=== PATIENT | female | born 1995 | race Caucasian/White ===

== ENCOUNTER → 2023-03-29 | Outpatient (CLI) | payer OTHER, SELFPAY ==
[2023-04-05 17:53] LABS: HPV Reflexed? NOT INDICATED
== END | disposition home or self-care (01) ==
LOC: LABSPEC 17:11
PROVIDERS: Referring Provider Advanced Practice Midwife; Visit Provider Advanced Practice Midwife
DX: Z12.4 Encounter for screening for malignant neoplasm of cervix (principal)
CPT/HCPCS: 88175; G0145

== ENCOUNTER → 2024-04-14 | Outpatient (CLI) | payer OTHER, SELFPAY ==
--- NOTE | 2024-04-14 08:48 | US_ITS ---
STUDY: ULTRASOUND BREAST - LEFT REASON FOR EXAM: Female, 28 years old. Pain in the left breast. TECHNIQUE: Axial and longitudinal images of the LEFT breast were performed with a high resolution ultrasound transducer. # OF IMAGES: 21 COMPARISON: Comparison is made with prior mammogram done earlier today. FINDINGS: LEFT Breast: The inferior lateral quadrant of the left breast was examined with ultrasound. No sonographic abnormality is seen. US/Breast Limited Unilateral IMPRESSION: No sonographic abnormality is seen. ASSESSMENT CATEGORY: BIRADS Category 1: Negative. A letter regarding these results will be sent to the patient by the facility within 30 days. Electronically Signed: Fox Escalante MD at 13:54 EST ,
--- NOTE | 2024-04-14 08:48 | BI_ITS ---
MAMMOGRAPHY - BILATERAL DIAGNOSTIC REASON FOR EXAM: Female, 28 years old. Left lateral breast PERTINENT HISTORY: Grandmother with breast cancer. Aunts with breast cancer. TECHNIQUE: Digital bilateral breast james (3D mammographic acquisition) in the CC and MLO projections. 2-D mediolateral oblique (MLO) and craniocaudad (CC) views of both breasts were obtained. CAD: Full Field Digital Mammography with Computer Added Detection was performed. COMPARISON: None. Baseline examination. FINDINGS: Breast Composition: The breasts are extremely dense, which lowers the sensitivity of mammography. There are no dominant masses or suspicious calcifications. No other significant abnormalities are identified. BI/DIAG MAMM W/CAD, BILAT IMPRESSION: Negative diagnostic mammogram. With the patient''s history of a palpable lump in the left breast, targeted ultrasound correlation recommended. ASSESSMENT CATEGORY: BIRADS Category 0: Incomplete. Need additional imaging evaluation. A letter regarding these results will be sent to the patient by the facility within 30 days. Approximately 10% of breast cancers are not detected by mammography. A normal mammogram should not delay biopsy of a clinically suspicious abnormality. Electronically Signed: Fox Escalante MD at 10:28 EST ,
== END | disposition home or self-care (01) ==
PROVIDERS: Referring Provider Advanced Practice Midwife; Visit Provider Advanced Practice Midwife
DX: N63.20 Unspecified lump in the left breast, unspecified quadrant (principal); Z80.3 Family history of malignant neoplasm of breast
CPT/HCPCS: 76642; 77062; 77066; G0279

== ENCOUNTER → 2024-11-20 | Outpatient (CLI) | payer OTHER, SELFPAY ==
--- NOTE | 2024-11-20 17:48 | US_ITS ---
PROCEDURE: TRANSVAGINAL NON- 11/20/2024 REASON FOR EXAM: IRREGULAR CYCLES TECHNIQUE: Grayscale and color Doppler transvaginal ultrasound COMPARISON: None. FINDINGS: Measurements: Uterus: 7.5 x 3.4 x 4.9 cm for volume of 65.5 mL Endometrial Thickness: 0.5 cm Right Ovary: 4.3 x 2.3 x 2.7 cm for volume of 14.0 mL Left Ovary: 3.0 x 1.8 x 1.9 cm for volume of 5.4 mL Uterus: Retroverted. Normal contour and myometrial echotexture. Nabothian cysts at the cervix. Endometrium: Normal echotexture. Right ovary: There are multiple small physiologic follicles, at least 10 on a single image. Left ovary: Normal size and echotexture. Cul-de-sac: No free intraperitoneal fluid identified. Color Doppler: Normal color flow doppler signal at both ovaries. US/Transvaginal Non- IMPRESSION: Polycystic morphology of the right ovary. Correlate for clinical evidence of P COS. Reading Location: [facility]
== END | disposition home or self-care (01) ==
PROVIDERS: Referring Provider Advanced Practice Midwife; Visit Provider Advanced Practice Midwife
DX: N92.6 Irregular menstruation, unspecified (principal)
CPT/HCPCS: 76830

== ENCOUNTER → 2024-11-28 | Outpatient (CLI) | payer OTHER, SELFPAY ==
--- OUTSIDE RECORDS SUMMARY | 2024-11-28 10:24 | XMS RPT_ITS | CCD ---
Author Organization [facility] Care Team Providers Care Singing Messenger Name Role Phone No, Physician Primary Care Provider UnavailJACEY Cartagena Attending Unav ailable JACEY HER Referring Unav ailable NO, PHYSICIAN Primary Care Unavailable JACEY HER Admitting Unav ailable Rodriguez, Renee Unavailable Unavailable Adriane Demarco B Unavailable Unavailable Adriane Demarco B Unavailable Unavailable Unavailable Unavailable Primary Care Provider Unavailabl e Unavailable Primary Care Provider Unavaillaurence e LILLY BOYD II Attending Unavailabl e LILLY BOYD II Referring Unavailabl e BEKA ZEPEDA Attending Unavailable EUFEMIA, ADRIANE B Primary Care Unavailable EUFEMIA, ADRIANE B Primary Care Unavailable Care Physician, No Primary Primary Care Provider Unavailable Care Physician, No Primary Referring Provider Un available Britney Garcia CNM Attending Provider [phone] Care Physician, No Primary Referring Unava ilable Britney Garcia Attending Unavailable Care Physician, No Primary Primary Care Unava ilable Britney Garcia Attending Unavailable Britney Garcia Referring Unavailable Care Physician, No Primary Primary Care Unava ilable Britney Garcia Attending Unavailable Britney Garcia Referring Unavailable Care Physician, No Primary Primary Care Unava ilable Care Physician, No Primary Primary Care Unava ilable Care Physician, No Primary Referring Unava ilable Britney Garcia Attending Unavailable Britney Garcia CNM Referring Provider Allergies Allergy Classification Reported Allergen(s) Allergy Type Date of Onset Reaction(s) Facility Penicillins (antibiotic) (1 source) Amoxicillin; Translations: [AMOXICILLIN] Drug Allergy 2 [facility] 3 Repository Unclassified (2 sources) DOG DANDER; Translations: [DOG DANDER] Propensity to adverse reactions to drug (disorder) 4 [facility] 3 Repository (8 sources) Animal dander - Cats allergy to substance Itching [facility] Work Phone: (8 sources) Animal dander - Dogs allergy to substance Itching [facility] Work Phone: (4 sources) Grass allergy to substance Itching [facility] Work Phone: (5 sources) Amoxicillin; Translations: [Amoxicillin TABS] [facility] (3 sources) Amoxicillin; Translations: [AMOXICILLIN] Drug Allergy 2 [facility] Repository Medications Current Medications Medication Drug Class(es) Dates Sig (Normalized) Sig (Original) benoxinate hydrochloride 4 mg/ml / fluorescein sodium 2.5 mg/ml ophthalmic solution (2 sources) Diagnostic Dye Start: 04-04-2022 End: 04-05-2022 fluorescein-benoxi eliceo 0.25-0.4 % 1 Drop (FLURESS) Start: 02-28-2022 End: 03-01-2022 fluorescein-benoxinate 0.25- 0.4 % 1 Drop (FLURESS) phenylephrine hydrochloride 25 mg/ml ophthalmic solution (1 source) alpha-1 Adrenergic Agonist Start: 02-28-2022 End: 03-01-2022 PHENYLephrine 2.5 % 1 Drop (AK-DILATE, DRE-SYNEPHRINE) Completed/Discontinued Medications Medication Drug Class(es) Dates Sig (Normalized) Sig (Original) amoxicillin 500 mg oral tablet (1 source) Penicillin-class Antibacterial Start: 07-25-2021 take 2 tablets by mouth every eight hours Amoxicillin 500 MG Oral Tablet TAKE 2 TABLET Every 8 hours Quantity: 42 Refills: 0 Ordered: 25-Jul-2021 Evelyn ENGINE BUILDUP MECH[employer]IC-STUDENT TRUCK DRIVER, Bree Start : 25-Jul-2021 Active azithromycin 250 mg oral tablet (4 sources) Macrolide Antimicrobial Start: 07-27-2021 Azithromycin 250 MG Oral Tablet TAKE 2 TABLETS ON DAY 1 THEN TAKE 1 TABLET A DAY FOR 4 DAYS. Quantity: 1 Refills: 0 Ordered: 27-Jul-2021 Cbick ENGINE BUILDUP MECHANIC-STUDENT TRUCK DRIVER, Bree Start : 27-Jul-2021 Active Start: 05-22-2019 End: 07-25-2021 take 10 tablets by mouth once Azithromycin 250 MG Oral Tablet TAKE DIRECTED PER PACKAGE INSTRUCTIONS. Quantity: 1 Refills: 0 Ordered: 22-May-2019 Renee Fermin Start : 22-May-2019 End : 25-Jul-2021 Complete Start: 05-22-2019 take 1 tablet by mouth once Az ithromycin 250 MG Oral Tablet TAKE DIRECTED PER PACKAGE INSTRUCTIONS. Quantity: 1 Refills: 0 Renee Fermin Start : 22-May-2019 Active 6 Tablet Pack cetirizine hydrochloride 5 mg oral tablet (2 sources) Histamine-1 Receptor Antagonist take 2 tablets by mouth once daily cetirizine (ZYRTEC) 5 mg tablet Take 10 mg by mouth once daily. 0 Active Comment on above: Take 10 mg by mouth once daily. fluticasone propionate 0.05 mg/actuat metered dose nasal spray (2 sources) Corticosteroid Start: 2019 End: 2021 take 2 spray(s) nasal route once daily Fluticasone Propionate 50 MCG/ACT Nasal Suspension USE 2 SPRAYS IN EACH NOSTRIL ONCE DAILY Quantity: 1 Refills: 0 Ordered: 23-Jun-2019 Renee Fermin Start : 29-May-2019 End : 25-Jul-2021 Complete 1 ml ketorolac tromethamine 30 mg/ml injection (1 source) Nonsteroidal Anti-inflammatory Drug, Cyclooxygenase Inhibitor Start: 2018 End: 2018 ketorolac (TORADOL) injection 30 mg methylPREDNISolone 4 mg oral tablet (3 sources) Corticosteroid Start: 2019 methylPREDNISolone 4 MG Oral Tablet Therapy Pack as directed Quantity: 1 Refills: 0 Renee Fermin Start : 29-May-2019 Active 21 Tablet Pack methylPREDNISolone 4 MG Oral Tablet Therapy Pack (2 sources) Start: 2019 End: 2021 methylPREDNISolone 4 MG Oral Tablet Therapy Pack as directed Quantity: 1 Refills: 0 Ordered: 29-May-2019 Renee Fermin Start : 29-May-2019 End : 25-Jul-2021 Complete Start: 05-22-2019 End: 07-25-2021 methylPREDNISolone 4 MG Oral Tablet Therapy Pack as directed Quantity: 1 Refills: 0 Ordered: 22-May-2019 Renee Fermin Start : 22-May-2019 End : 25-Jul-2021 Complete montelukast 10 mg oral tablet (2 sources) Leukotriene Receptor Antagonist Start: 05-29-2019 End: 07-25-2021 take 1 tablet by mouth at bedtime Montelukast Sodium 10 MG Oral Tablet TAKE 1 TABLET AT BEDTIME. Quantity: 90 Refills: 1 Ordered: 19-Aug-2019 Adriane Demarco PA-C Start : 29-May-2019 End : 25-Jul-2021 Complete 2 ml ondansetron 2 mg/ml injection (1 source) Serotonin-3 Receptor Antagonist Start: 08-31-2018 End: 09-01-2018 ondansetron (ZOFRAN) injection 4 mg 1000 ml sodium chloride 9 mg/ml injection (1 source) Start: 08-31-2018 End: 09-01-2018 sodium chloride 0.9% (NS) bolus 1,000 mL Problems Active Problems Problem Classification Problem Date Documented Da te Episodic/Chronic Allergic reactions (5 sources) Allergic disposition; Translations: [Allergic reaction] Onset: 12-11-2023 Episodic Blindness and vision defects (4 sources) Bilateral myopia of eyes; Translations: [Myopia, bilateral] Episodic Glaucoma (2 sources) Preglaucoma, unspecified, bilateral; Translations: [Preglaucoma, unspecified] Chronic Headache; including migraine (4 sources) Episodic tension-type headache; Translations: [Episodic tension type headache] Chronic Menstrual disorders (14 sources) Irregular periods; Translations: [Irregular menstrual cycle] Onset: 12-11-2023 Chronic Nonmalignant breast conditions (6 sources) Breast lump; Translations: [Unspecified lump in the left breast, unspecified quadrant] Onset: 04-02-2024 04-08-2024 Episodic Other inflammatory condition of skin (2 sources) Pruritus, unspecified; Translations: [Pruritus, unspecified] Onset: 12-11-2023 Episodic Other screening for suspected conditions (not mental disorders or infectious disease) (7 sources) Patient encounter status; Translations: [Encounter for screening for diabetes mellitus] Onset: 11-18-2024 11-18-2024 Episodic Comment on above: Day 08/05 (due to cyc le length) labs, TVUS, Will consider HSG, SA, Letrozole Other upper respiratory disease (2 sources) Allergic disposition; Translations: [Allergic rhinitis due to other allergen] Chronic Other upper respiratory infections (4 sources) Acute frontal sinusitis; Translations: [Acute maxillary sinusitis] Episodic Viral infection (3 sources) Viral disease; Translations: [Viral infection, unspecified] Onset: 09-01-2018 Episodic Past or Other Problems Problem Classification Problem Date Documented Da te Episodic/Chronic Unclassified (2 sources) Remove/insert IUD 03-29-2023 NEGATED: Highlighted row has been ruled out!Unclassified (2 sources) No known active problems 02-28-2022 Results Test Name Value Interpretation Reference Range Facil ity Transvaginal Non-on 11-20-2024 Transvaginal Non- [facility] Imaging Services [address], [place] [id number] Transvaginal Non- MR#: [id number] Acct: [id number] Name: CASE,MARILYN PITT Rep #: [id number] : 1995 F 29 From: Tiburcio Jameson MD PCP: Care Physician,No Primary Status: REG CLI Study: Transvaginal Non- Date of Exam: Exam# [id number] Ordering Dr: Britney Garcia CNM PROCEDURE: TRANSVAGINAL NON- 11/20/2024 REASON FOR EXAM: IRREGULAR CYCLES TECHNIQUE: Grayscale and color Doppler transvaginal ultrasound COMPARISON: None. FINDINGS: Measurements: Uterus: 7.5 x 3.4 x 4.9 cm for volume of 65.5 mL Endometrial Thickness: 0.5 cm Right Ovary: 4.3 x 2.3 x 2.7 cm for volume of 14.0 mL Left Ovary: 3.0 x 1.8 x 1.9 cm for volume of 5.4 mL Uterus: Retroverted. Normal contour and myometrial echotexture. Nabothian cysts at the cervix. Endometrium: Normal echotexture. Right ovary: There are multiple small physiologic follicles, at least 10 on a single image. Left ovary: Normal size and echotexture. Cul-de-sac: No free intraperitoneal fluid identified. Color Doppler: Normal color flow doppler signal at both ovaries. US/Transvaginal Non- IMPRESSION: Polycystic morphology of the right ovary. Correlate for clinical evidence of PCOS. Reading Location: [facility] CC: BOLA Garcia; No Primary Care Physician Imaging Specialist: Signed Normal [facility] Air Compressor Operator Office Visit Reporton 11-18-2024 Air Compressor Operator Office Visit Report [facility] [address], [address] [place] [address] OFFICE VISIT Date of Service: 11/18/24 MR#: [id number] Acct: [id number] Name: CASE,MARILYN PITT Rep #: [id number] : 1995 Provider: BOLA Mccollum ams Age/Sex: 29/F [facility] [facility] Status: Signed Intake Vital Signs 04/02/24 16:11 11/18/24 06:27 11/18/24 06:31 Height 6 ft 6 ft 6 ft Weight: 193 lb BMI 26.2 BP 108/75 Intake Visit Reasons: Discuss infertility Mri Tech Required: No Is patient in pain?: No Allergies amoxicillin Allergy (Mild, Verified 11/18/24 06:28) Hives Medications ???Medication ???Instructions ???Recorded ???Confirmed ???Type NK 04/02/24 11/18/24 History Is last menstrual period known: Yes Last Menstrual Period: 11/03/24 Post menopausal: No Patient : No : No Do you think of yourself as: straight/heterosexual Current gender identity: female Control Method: none PFSH Family History Sister H/O splenectomy Social History (Updated 11/18/24 @ 06:30 by Iliana Peralta) adopted: No household members: spouse number of children: 0 service: No current occupational status: employed current occupation: [employer] current occupational exposures/hazards: No pets and animals: Yes pets and animals: cat(s) and dog(s) history of recent travel: No sexually active: Yes do you think of yourself as: straight/heterosexual current gender identity: female Smoking Status: Never smoker second hand exposure: No alcohol intake: never substance use type: does not use well-balanced diet: daily or most days caffeine: Yes Type: carbonated beverages Number of servings: 1 eating out: 1-3 times/week during the past year weight has: remained stable flory/orthodoxy: Zoroastrianism seatbelt use: always do you feel safe at home: Yes additional social history: Danny HPI Discuss infertility Details: MARILYN CASE is a 29 year old who presents for irregular menstrual cycles. Has been having unprotected and timed intercourse x 12 months. Using Inositol since last annual in March. Does have regular 33-40 day cycles and believes she is having ovulation sx. Does not use ovulation test strips. 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 any additional risk factors identified: family hx of PCOS Female Reproductive History Last Menstrual Period: 11/03/24 Cycle Length: 21-35 Bleeding Duration: 7 Questions: metorrhagia: No, sexually active: Yes, dyspareunia: No and PCB: No ROS Const Constitutional: Reports system reviewed and no additional complaints, except as documented Cardio Card: Reports system reviewed and no additional complaints, except as documented Resp Resp: Reports system reviewed and no additional complaints, except as documented GI GI: Reports system reviewed and no additional complaints, except as documented : Reports system reviewed and no additional complaints, except as documented Skin Skin/Breast: Reports system reviewed and no additional complaints, except as documented Neuro Neuro: Reports system reviewed and no additional complaints, except as documented Psych Psych: Reports system reviewed and no additional complaints, except as documented Exam Const General: cooperative, healthy appearing, comfortable and no acute distress Orientation: alert, awake and oriented x3 Neck Neck: normal visual inspection and full ROM Resp Effort Inspection: normal respiratory effort, able to speak in complete sentences and symmetric chest movement Skin General: no rashes or lesions noted Neuro General: patient alert, patient awake and patient oriented x3 Cognition: normal cognition Speech: speech normal Gait: normal gait Extrem General: normal to inspection and full ROM Psych Appearance: grossly normal and well kempt Mental Status: mental status grossly normal Affect: normal affect Speech and Movement: speech and movement normal Attitude: cooperative Thought Process: normal Thought Content: normal Judgment: judgment good Coding Level of Care Code Off vis,est,level 4 Diagnoses Irregular menstrual cycle N92.6 Infertility counseling Z31.[address] (more content not included)... Normal [facility] Breast Limited Unilateralon 04-14-2024 Breast Limited Unilateral [facility] Imaging Services [address] [place], [place] [address] Breast Limited Unilateral MR#: [id number] Acct: [id number] Name: CASE,MARILYN PITT Rep #: [id number] : 1995 F 28 From: Fox bueno MD PCP: Care Physician,No Primary Status: REG CLI Study: Breast Limited Unilateral Date of Exam: Exam# [id number] Ordering Dr: Britney Garcia [facility] [id number] STUDY: ULTRASOUND BREAST - LEFT REASON FOR EXAM: Female, 28 years old. Pain in the left breast. TECHNIQUE: Axial and longitudinal images of the LEFT breast were performed with a high resolution ultrasound transducer. # OF IMAGES: 21 COMPARISON: Comparison is made with prior mammogram done earlier today. FINDINGS: LEFT Breast: The inferior lateral quadrant of the left breast was examined with ultrasound. No sonographic abnormality is seen. US/Breast Limited Unilateral IMPRESSION: No sonographic abnormality is seen. ASSESSMENT CATEGORY: BIRADS Category 1: Negative. A letter regarding these results will be sent to the patient by the facility within 30 days. Electronically Signed: Fox Escalante MD at 13:54 EST , CC: BOLA Garcia; No Primary Care Physician Imaging Specialist: Signed Normal [facility] DIAG MAMM W/CAD, BILATon DIAG MAMM W/CAD, BILAT [facility] Imaging Services [address] [place] [address] DIAG MAMM W/CAD, BILAT MR#: [id number] Acct: [id number] Name: CASE,MARILYN PITT Rep #: [id number] : 1995 F 28 From: Fox bueno MD PCP: Care Physician,No Primary Status: REG CLI Study: DIAG MAMM W/CAD, BILAT Date of Exam: 04/14/24 Exam# [id number] Ordering Dr: Britney Garcia CNM [id number] MAMMOGRAPHY - BILATERAL DIAGNOSTIC REASON FOR EXAM: Female, 28 years old. Left lateral breast PERTINENT HISTORY: Grandmother with breast cancer. Aunts with breast cancer. TECHNIQUE: Digital bilateral breast james (3D mammographic acquisition) in the CC and MLO projections. 2-D mediolateral oblique (MLO) and craniocaudad (CC) views of both breasts were obtained. CAD: Full Field Digital Mammography with Computer Added Detection was performed. COMPARISON: None. Baseline examination. FINDINGS: Breast Composition: The breasts are extremely dense, which lowers the sensitivity of mammography. There are no dominant masses or suspicious calcifications. No other significant abnormalities are identified. BI/DIAG MAMM W/CAD, BILAT IMPRESSION: Negative diagnostic mammogram. With the patient''s history of a palpable lump in the left breast, targeted ultrasound correlation recommended. ASSESSMENT CATEGORY: BIRADS Category 0: Incomplete. Need additional imaging evaluation. A letter regarding these results will be sent to the patient by the facility within 30 days. Approximately 10% of breast cancers are not detected by mammography. A normal mammogram should not delay biopsy of a clinically suspicious abnormality. Electronically Signed: Fox Escalante MD at 10:28 EST , CC: BOLA Garcia; No Primary Care Physician Imaging Specialist: Signed Normal [facility] Air Compressor Operator Office Visit Reporton 04-02-2024 Air Compressor Operator Office Visit Report [facility]'s [address], [address] [place] [address] OFFICE VISIT Date of Service: 04/02/24 MR#: [id number] Acct: [id number] Name: CASE,MARILYN PITT Rep #: [id number] : 1995 Provider: BOLA Mccollum ams Age/Sex: 28/F Location: [facility] [place] Status: Signed Intake Vital Signs 03/29/23 16:16 04/02/24 16:07 04/02/24 16:11 Height 6 ft 6 ft 6 ft Weight: 194 lb BMI 26.3 BP 111/77 Intake Visit 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) Mri Tech Required: No Is patient in pain?: No Allergies amoxicillin Allergy (Mild, Verified 04/02/24 16:08) Hives Medications ???Medication ???Instructions ???Recorded ???Confirmed ???Type NK 04/02/24 04/02/24 History Is last menstrual period known: No Post menopausal: No Patient : No : No PFSH Family History (Updated 04/02/24 @ 16:11 by Fauzia Meza) Sister H/O splenectomy Social History (Updated 04/02/24 @ 16:10 by Fauzia Meza) household members: spouse number of children: 0 current occupational status: employed current occupation: [employer] current occupational exposures/hazards: No sexually active: Yes seatbelt use: always do you feel safe at home: Yes additional social history: Danny LATHA Encounter for routine gynecological examination Details: MARILYN VILLASEÑOR is a 28 year old who presents for annual exam. Has been TTC since November. Cycles are every 35-40 days. timed intercourse reviewed and Rick +D-CHiro discussed. Last PAP: 2022 History of abnormal PAP: Last mammogram: due at 42 History of abnormal mammogram: Colon cancer screening: due at 47 Other preventative health care screenings: ROS Const Constitutional: Reports system reviewed and no additional complaints, except as documented Cardio Card: Reports system reviewed and no additional complaints, except as documented Resp Resp: Reports system reviewed and no additional complaints, except as documented GI GI: Reports system reviewed and no additional complaints, except as documented : Reports system reviewed and no additional complaints, except as documented; Denies difficulty voiding, dysuria or urinary frequency Skin Skin/Breast: Reports system reviewed and no additional complaints, except as documented Neuro Neuro: Reports system reviewed and no additional complaints, except as documented Psych Psych: Reports system reviewed and no additional complaints, except as documented; Denies anhedonia, anxiety or depression Exam Const General: cooperative, healthy appearing, comfortable and no acute distress Orientation: alert, awake and oriented x3 Neck Neck: normal visual inspection and full ROM Thyroid: thyroid normal Chest Breast inspection: normal inspection of the breasts and normal inspection of the axillae Breast palpation: normal palpation of the axillae and abnormal palpation of the breast left lower outer mass fixed and firm; nontender and normal areola; no nipple discharge and no tenderness Resp Effort Inspection: normal respiratory effort, able to speak in complete sentences and symmetric chest movement GI Inspection: normal to inspection Palpation: soft Rectal Exam: visual inspection normal External Female Exam: normal external appearance and normal appearance of the urethra Urethra: normal appearance of the urethra Speculum Exam - Vagina: normal appearance of the vagina and normal vaginal discharge Speculum Exam - Cervix: normal appearance of the cervix and nontender Bimanual Exam- Vagina Uterus: normal bimanual exam, normal palpation, uterine size normal, No tender and non-tender Bimanual Exam- Adnexa, other: normal Pelvic Support: normal Skin General: no rashes or lesions noted Neuro General: patient alert, patient awake and patient oriented x3 Cognition: normal cognition Speech: speech normal Gait: normal gait Extrem General: normal to inspection and full ROM Psych Appearance: grossly normal and well kempt Mental Status: mental status grossly normal Affect: normal affect Speech and Movement: speech and movement normal Attitude: cooperative Thought Process: normal Thought Content: normal Judgment: judgment good Coding Level of Care Code Off vis,est,prev 18-39yrs Diagnoses Encounter for routine gynecological examination Z01.419 Breast lump N63.0 Assessment and Plan Assessment and Plan (1) Encounter for routine gynecological examination: (2) Breast lump: Status: Acute Plan: diagnostic mammogram and US Orders: Orders DIAG MAMM W/CAD, UNILAT Today N63.0 - Unspecified lump in unspecified breast Plan Details Additional Comments: Cervical cancer screenin Breast cancer screening: see problem list STD prevention and contraceptive options including their risks, benefi (more content not included)... Normal [facility] Choriogonadotropin.beta subu niton 12-11-2023 HCG.beta subunit Qn m[IU]/mL Normal <5 [facility] Comment on above: Order Comment: Total HCG measurement is performed using the [place] Access Immunoassay which detects intact HCG and free beta HCG subunit. This test is not indicated for use as a tumor marker. HCG testing is performed using a different test methodology at [facility] than other [facility]. Direct result comparison should only be made within the same method. Performed By: #### 2 [id number] #### VILLARREAL DMITRY ([id number]) [facility] ([facility]) [address] [place] [address] Office Visit (Internal Medic ine)on 07-27-2021 Follow-up visit Diagnoses/Problems Assessed Acute non-recurrent maxillary sinusitis (461.0) (J01.00) Allergic reaction, initial encounter (995.3) (T78.40XA) Orders Acute non-recurrent maxillary sinusitis Start: Azithromycin 250 MG Oral Tablet; TAKE 2 TABLETS ON DAY 1 THEN TAKE 1 TABLET A DAY FOR 4 DAYS Rx By: Bree Rivas; Dispense: 0 Days ; #:1 X 6 Tablet Pack; Refill: 0; For: Acute non-recurrent maxillary sinusitis; FEDE = N; Verified Transmission to [id number]; Last Updated By: Piter Díaz; 07/27/2021 8:59:20 AM Acute non-recurrent maxillary sinusitis, Allergic reaction, initial encounter Follow-up PRN Outpatient Follow-up Status: Active Requested for: 27Jul2021 Ordered Stat; For: Acute non-recurrent maxillary sinusitis, Allergic reaction, initial encounter; Ordered By: Bree Rivas Performed: Due: 25Oct2021 Patient Discussion/Summary FUOV PRN ED if respiratory concerns. Provider Impressions Allergic reaction to Amoxicillin. Patient reports hives 2 days after starting Amoxicillin. She reports some improvement with sinusitis and would like a different ATB. Denies respiratory distress or swallowing difficulties. Instructed to D/C Amoxicillin. Start Z-pack. Discussed possible AE. 1 ED if respiratory or swallowing concerns occur. Pt. VU. Benadryl per package instructions for itching. FUOV as needed. Amoxicillin added to allergies. 1 Amended By: Bree Rivas; Jul 27 2021 10:32 AM ESTChief Complaint PT STARTED ANTIBIOTIC A FEW DAYS AGO AND WOKE UP THIS MORNING WITH RASH ON ARMS AND LEGS VERY ITCHY NO DIFFICULTY SWALLOWING History of Present [id number] YOF presents via VV d/t hives after taking Amoxicillin. Denies respiratory concerns. Denies trouble swallowing. Reports itchy rash on b/l UE, torso, and neck. Review of Systems Constitutional: feeling poorly, but no fever. Eyes: no blurred vision. Cardiovascular: no chest pain, no tightness or heavy pressure, no shortness of breath, the heart rate was not slow and the heart rate was not fast. Respiratory: no cough and no shortness of breath during exertion. Gastrointestinal: no diarrhea, no nausea and no vomiting. Skin: a rash and itching, but as noted in HPI. Neurological: no headaches and no dizziness. Psychiatric: no confusion. Active Problems Problems Acute non-recurrent maxillary sinusitis (461.0) (J01.00) Environmental and seasonal allergies (477.8) (J30.89) Irregular menses (626.4) (N92.6) Past Medical History Problems History of Episodic tension-type headache (339.11) (G44.219) Surgical History Problems History of [place] tooth extraction Family History Mother Family history of hypercholesterolemia (V18.19) (Z83.42) Father Family history of cardiac disorder (V17.49) (Z82.49) Family history of hypertension (V17.49) (Z82.49) Family history of malignant neoplasm (V16.9) (Z80.9) Grandparent Family history of cardiac disorder (V17.49) (Z82.49) Family history of myocardial infarction (V17.3) (Z82.49) Maternal Grandmother Family history of malignant neoplasm of female breast (V16.3) (Z80.3) Aunt Family history of hypertension (V17.49) (Z82.49) Maternal Aunt Family history of malignant neoplasm of female breast (V16.3) (Z80.3) Social History Problems No advance directives (V49.89) (Z78.9) No alcohol use No illicit drug use Non-smoker (V49.89) (Z78.9) Allergies Medication Amoxicillin TABS Allergy; Hives;; 27 Jul 2021; Recorded By: Bree Rivas; 07/27/2021 8:57:08 AM NonMedication Animal dander - Cats Allergy; Itching; Updated By: Jessy Quintero; 05/22/2019 1:03:16 PM Animal dander - Cats Itching; Recorded By: Dai Diaz; 05/22/2019 1:05:20 PM Animal dander - Dogs Allergy; Itching; Updated By: Jessy Quintero; 05/22/2019 1:03:16 PM Animal dander - Dogs Itching; Recorded By: Dai Diaz; 05/22/2019 1:05:20 PM Grass Allergy; Itching; Updated By: Jessy Quintero; 05/22/2019 1:03:16 PM Current Meds Medication NameInstruction Amoxicillin 500 MG Oral TabletTAKE 2 TABLET Every 8 hours Vitals Vital Signs Recorded: 27Jul2021 08:36AM Tobacco Useb) No Fall Screeninga) No falls within the last year Physical Exam Constitutional General appearance: Alert and in no acute distress. Pulmonary Respiratory assessment: No respiratory distress, normal respiratory rhythm and effort. Psychiatric Orientation: Oriented to person, place, and time. Mood and affect: Normal. Signatures Electronically signed by : GERALDO Potts; Jul 27 2021 10:32AM EST (Author) Normal [employer]works Tobacco Screening.on 022 Fall risk assessment a) No falls within the last year [facility] Work Phone: Tobacco use status [facility] b) No [facility] Work Phone: Office Visit (Internal Medic ine)on 07-25-2021 Follow-up visit Diagnoses/Problems Assessed Acute non-recurrent maxillary sinusitis (461.0) (J01.00) Acute A/ Onset 6 days ago Sinus pressure and tenderness with palpation of maxillary sinuses b/l. No fever P/ Amoxicillin X 7 days NS nasal spray 3-4 times/day Flonase 1-2 sprays each nostril daily X 7 days. Encouraged continued use of NS nasal spray d/t chronic allergies. Discussed viral vs bacterial infection. FUOV PRN ED if CP or SOB Notify if condition worsens/concerens. Pt. VU. Environmental and seasonal allergies (097.8) (J30.89) Chronic-exacerbated Discussed routine use of NS nasal spray. Claritin daily Orders Acute non-recurrent maxillary sinusitis Start: Amoxicillin 500 MG Oral Tablet; TAKE 2 TABLET Every 8 hours Rx By: Bree Rivas; Dispense: 7 Days ; #:42 Tablet; Refill: 0;For: Acute non-recurrent maxillary sinusitis; FEDE = N; Sent To: [id number] Patient Discussion/Summary FUOV PRN Prescription to listed pharmacy. Chief Complaint C/O SINUS PRESSURE/CONGESTION, RUNNY NOSE, SORE THROAT SINCE LAST WENS. DID LOSE TASTE FOR 1 DAY History of Present [id number] YOF presents d/t runny nose, ST, loss of taste X 1 day, sinus pressure, watery and itching eyes, and congestion X 6 days. No fever. No known COVID-19 exposure. Sinus pressure and pain with palpation of maxillary sinuses b/l. Tenderness rated 4/10. Excedrin migraine offered moderate relief. OTC cold and flu with minimal effect. NS nasal spray in the morning. Review of Systems Constitutional: feeling poorly, chills and feeling tired, but no fever. Eyes: purulent discharge from the eyes and itching of the eyes, but no blurred vision. ENT: sore throat, but no earache and as noted in HPI. Cardiovascular: no chest pain, no tightness or heavy pressure and no shortness of breath. Respiratory: no cough and no shortness of breath during exertion. Gastrointestinal: no nausea and no vomiting. Neurological: headaches, but no dizziness. Psychiatric: no confusion. Active Problems Problems Environmental and seasonal allergies (355.8) (J30.89) Irregular menses (626.4) (N92.6) Past Medical History Problems History of Episodic tension-type headache (339.11) (G44.219) Surgical History Problems History of [place] tooth extraction Family History Mother Family history of hypercholesterolemia (V18.19) (Z83.42) Father Family history of cardiac disorder (V17.49) (Z82.49) Family history of hypertension (V17.49) (Z82.49) Family history of malignant neoplasm (V16.9) (Z80.9) Grandparent Family history of cardiac disorder (V17.49) (Z82.49) Family history of myocardial infarction (V17.3) (Z82.49) Maternal Grandmother Family history of malignant neoplasm of female breast (V16.3) (Z80.3) Aunt Family history of hypertension (V17.49) (Z82.49) Maternal Aunt Family history of malignant neoplasm of female breast (V16.3) (Z80.3) Social History Problems No advance directives (V49.89) (Z78.9) No alcohol use No illicit drug use Non-smoker (V49.89) (Z78.9) Allergies Medication No Known Drug Allergies Recorded By: Jessy Quintero; 05/22/2019 1:03:16 PM NonMedication Animal dander - Cats Allergy; Itching; Updated By: Jessy Quintero; 05/22/2019 1:03:16 PM Animal dander - Cats Itching; Recorded By: Dai Diaz; 05/22/2019 1:05:20 PM Animal dander - Dogs Allergy; Itching; Updated By: Jessy Quintero; 05/22/2019 1:03:16 PM Animal dander - Dogs Itching; Recorded By: Dai Diaz; 05/22/2019 1:05:20 PM Grass Allergy; Itching; Updated By: Jessy Quintero; 05/22/2019 1:03:16 PM Current Meds Medication NameInstruction No Reported Medications Vitals Vital Signs Recorded: 25Jul2021 10:18AM Tobacco Useb) No Fall Screeninga) No falls within the last year Physical Exam Constitutional General appearance: Alert and in no acute distress. acutely ill. Eyes Inspection of eyes: Sclera and conjunctiva were normal. Pulmonary Respiratory assessment: No respiratory distress, normal respiratory rhythm and effort. Psychiatric Orientation: Oriented to person, place, and time. Mood and affect: Normal. PE incomplete d/t VV. Speaks clearly with notable nasal congestion and in complete sentences without conversational dyspnea. No s/s of distress noted through conversation. Signatures Electronically signed by : GERALDO Potts; Jul 25 2021 10:35AM EST (Author) Normal [employer] Tobacco Screening.on 022 Fall risk assessment a) No falls within the last year [facility] Work Phone: Tobacco use status [facility] b) No [facility] Work Phone: C Urineon 09-05-2018 C Urine Final Report: Light growth of Normal skin bryan isolated Normal [facility] Comment on above: Performed By: #### [id number] #### [facility] Microbiology Subsection [address] [place] [address] Chem 7on 09-01-2018 Anion gap molar conc 8 mmol/L Low 10 - 20 mmol/L [facility] Chloride molar conc 107 mmol/L 98 - 108 mmol/L [facility] Creatinine mass conc 0.77 mg/dL 0.4 - 1.1 mg/dL [facility] GFR/1.73 sq M predicted among non-blacks MDRD vol rate/area (S/P/Bld) The eGFR should be used for monitoring renal function only and not for medication dosing. [facility] GFR/1.73 sq M.predicted CKD-EPI vol rate/area (S/P/Bld) 112 >=60 mL/min/1.73 m2 [facility] Glucose mass conc 118 mg/dL High 65 - 99 mg/dL [facility] HCO3 molar conc 26 mmol/L 21 - 32 mmol/L [facility] ealt Interpretation and review of laboratory results Abnormal [facility] Potassium molar conc 3.4 mmol/L Low 3.5 - 5.1 mmol/L [facility] Sodium molar conc 138 mmol/L 135 - 145 mmol/L [facility] Urea nitrogen mass conc 5 mg/dL Low 8 - 25 mg/dL [facility] Urea nitrogen/Creatinin e mass ratio 6.5 mg/mg Low [facility] INFLUENZA A,B RAPID MOLECULA Toi 09-01-2018 FLUAV RNA KIZZY+probe Ql (Unsp spec) Not Detected Not Detected [facility] FLUBV RNA KIZZY+probe Ql (Unsp spec) Not Detected Not Detected [facility] Interpretation and review of laboratory results Normal [facility] Test Method: Nucleic Acid Amplification [facility] Lactic Acid, Plasmaon 2018 Interpretation and review of laboratory results Normal [facility] Lactate molar conc 1.9 mmol/L 0.6 - 2 mmol/L [facility] Rapid Strep Screenon 019 Interpretation and review of laboratory results Normal [facility] Strep A Ag Negative Presumptive Negative for Group A Streptococcus [facility] URINALYSISon 09-01-2018 Bacteria Auto Ql (U) Few Abnormal None Seen /hpf [facility] Bilirubin Ql (U) Negative Negative [facility] th Clarity Refractometry automated Nom (U) Hazy Abnormal Clear [facility] Color Nom (U) Yellow Colorless, Yellow [facility] Epithelial cells.squamous Auto #/area (Urine sed) 3 [facility] Glucose Automated test strip mass conc (U) Negative Negative mg/dL [facility] Hemoglobin Automated test strip Ql (U) Large Abnormal Negative [facility] Interpretation and review of laboratory results Abnormal [facility] Ketones mass conc (U) Negative Negative mg/dL [facility] Leukocyte esterase Automated test strip Ql (U) Small Abnormal Negative [facility] Nitrite Automated test strip Ql (U) Negative Negative [facility] pH (U) 8.0 [pH] High [facility] Protein mass conc (U) 30 Abnormal Negative mg/dL [facility] Comment on above: False positive resul ts may occur in urines with large amounts of hemoglobin, pH greater than 8.0, contrast medium, or disinfectants including ammonium compounds. RBC Auto #/area (Urine sed) 3 [facility] Specific gravity Relative Density (U) 1.009 [facility] Urobilinogen mass conc (U) <2.0 <2.0 mg/dL [facility] WBC Auto #/area (Urine sed) 5 [facility] Microscopic examinat ion is performed on all urinalysis samples and only positive findings are reported. The test for blood on the chemical analytic portion of urinalysis may also be positive due to hemoglobinuria and myoglobinuria and if red blood cells are present they are quantified by microscopic examination. [facility] XR CHEST AP/PA AND LATon Interface, Rad In Fu ji Speechq - 09/01/2018 3:11 AM EDT EXAMINATION: XR CHEST AP/PA AND LAT HISTORY: Cough TECHNIQUE: XR CHEST AP/PA AND LAT COMPARISON: No relevant prior study is available at the time of this interpretation. FINDINGS: No visible pneumothorax or large pleural effusion. No convincing evidence for focal airspace consolidation. Unremarkable cardiomediastinal silhouette. No displaced fracture is visualized. IMPRESSION: No acute pulmonary abnormality. /[facility] Workstation ID: [id number] [facility] EXAMINATION: XR CHES T AP/PA AND LAT HISTORY: Cough TECHNIQUE: XR CHEST AP/PA AND LAT COMPARISON: No relevant prior study is available at the time of this interpretation. FINDINGS: No visible pneumothorax or large pleural effusion. No convincing evidence for focal airspace consolidation. Unremarkable cardiomediastinal silhouette. No displaced fracture is visualized. [facility] No acute pulmonary abnormality. /[facility] Workstation ID: [id number] [facility] XR CHEST AP/PA AND LAT EXAMINATION: XR CHEST AP/PA AND LAT HISTORY: Cough TECHNIQUE: XR CHEST AP/PA AND LAT COMPARISON: No relevant prior study is available at the time of this interpretation. FINDINGS: No visible pneumothorax or large pleural effusion. No convincing evidence for focal airspace consolidation. Unremarkable cardiomediastinal silhouette. No displaced fracture is visualized. IMPRESSION: No acute pulmonary abnormality. /[facility] Workstation ID: [id number] Dictated by: MARSHA BOUCHER on SatAug 31, 2018 11:58:43 PM EDT Transcribed by: YON QUIÑONEZ on SatSep 01, 2018 12:51:38 AM EDT Finalized by: MARSHA BOUCHER on SatSep 01, 2018 3:08:28 AM EDT Normal [facility] Comment on above: Order Comment: Reaso n for exam?:cough Injury/Trauma or Illness?:Illness/Other How long have you had these symptoms (acute/chronic)?:Acute History of cancer?:na Surgeries, chemotherapy, or radiation?:na Type of Exam?:Initial Additional signs and symptoms?:chest discomfort No Panel Information [facility] Vital Signs Date Time Vital Sign Value Performing Clinician Facility 11-18-2024 06:31-0400 Body height 182.88 cm No Primary Care Physician [facility] 11-18-2024 06:27-0400 Body mass index (BMI) [Ratio] 26.2 kg/m2 No Primary Care Physician [facility] 11-18-2024 06:27-0400 Body weight 87.54 kg No Primary Care Physician [facility] 11-18-2024 06:27-0400 Diastolic blood pressure 75 mm[Hg] No Primary Care Physician [facility] 11-18-2024 06:27-0400 Systolic blood pressure 108 mm[Hg] No Primary Care Physician [facility] 05-22-2019 15:06-0500 Body Temperature 98.7 [degF] Renee Rodriguez [facility] Work Phone: 05-22-2019 15:03-0500 BMI (Body Mass Index) 22.73 kg/m2 Renee Rodriguez [facility] Work Phone: 05-22-2019 15:03-0500 Body weight 73.94 kg Renee Rodriguez [facility] Work Phone: 05-22-2019 15:03-0500 BP Diastolic 60 mm[Hg] Renee Rodriguez [facility] Work Phone: Comment on above: Location: [facility] [place]; 05-22-2019 15:03-0500 BP Systolic 100 mm[Hg] Renee Rodriguez [facility] Work Phone: Comment on above: Location: [facility] [place]; 05-22-2019 15:03-0500 BSA (Body Surface Area) 1.93 m2 Renee Rodriguez [facility] Work Phone: 05-22-2019 15:03-0500 Height 180.34 cm Renee Rodriguez [facility] Work Phone: 05-22-2019 15:03-0500 Pulse (Heart Rate) 80 /min Renee Rodriguez [facility] Work Phone: 09-01-2018 01:42-0400 Body Temperature 98.1 [degF] Jacey Her [facility] 08-31-2018 22:53-0400 Pulse Oximetry 97 % Jacey Her [facility] 08-31-2018 22:52-0400 BMI (Body Mass Index) 21.62 kg/m2 Jacey Her [facility] 08-31-2018 22:52-0400 Height 180.3 cm Jacey Her [facility] 08-31-2018 22:52-0400 Weight 70.31 kg Jacey Her [facility] 08-31-2018 22:49-0400 BP Diastolic 70 mm[Hg] [facility] 08-31-2018 22:49-0400 BP Systolic 105 mm[Hg] [facility] 08-31-2018 22:49-0400 Pulse (Heart Rate) 96 /min [facility] 08-31-2018 22:49-0400 Respiratory Rate 16 /min [facility] Encounter Date Encounter Type Care Provider Facility Start: 11-20-2024 End: 11-20-2024 Patient encounter procedure Britney Garcia CNM -Ultrasound [facility] Work Phone: Start: 11-20-2024 End: 11-20-2024 ambulatory Britney Garcia Facility:[facility] Start: 11-18-2024 End: 11-18-2024 Patient encounter procedure Britney Garcia CNM -[facility] @ Start: 11-18-2024 End: 11-18-2024 ambulatory No Primary Care Physician -[facility] @ Start: 04-14-2024 End: 04-14-2024 ambulatory Britney Garcia Facility:[facility] Start: 04-02-2024 Encounter for gynecological examination (general) (routine) without abnormal findings Britney Garcia [facility] Start: 04-02-2024 End: 04-02-2024 ambulatory No Primary Care Physician [facility] Start: 12-11-2023 End: 12-11-2023 ambulatory [facility] Start: 08-09-2023 End: 08-09-2023 ambulatory LILLY BOYD II Facility:[facility] Start: 04-04-2022 End: 04-04-2022 Patient encounter procedure Lilly Boyd OD Work Phone: Optometry Comment on above: Glaucoma suspect of both eyes (Primary Dx); Myopia, bilateral; Regular astigmatism of both eyes Start: 02-28-2022 End: 02-28-2022 Patient encounter procedure Lilly Boyd OD Work Phone: Optometry Comment on above: Myopia, bilateral (P rimary Dx); Regular astigmatism of both eyes; Glaucoma suspect of both eyes Start: 07-27-2021 Office outpatient vi sit 15 minutes Adriane Darwin Demarco Work Phone: [facility] Work Phone: Start: 07-25-2021 Office outpatient vi sit 15 minutes Adriane Darwin Demarco Work Phone: [facility] Work Phone: Start: 09-03-2018 Patient encounter procedure Facility:[id number] Start: 09-01-2018 End: 09-01-2018 [facility] Start: 08-31-2018 End: 09-01-2018 Emergency department patient visit Jacey Brown Arden Work Phone: [facility] Comment on above: Viral syndrome (Prim lindsay Dx) Procedures Date Procedure Procedure Detail Performing Clinician Start: 11-20-2024 Transvaginal echography No Primary Care Physician Start: 04-04-2022 Visual field xm uni/ bi w/interp extended exam Lilly Boyd OD Work Phone: Start: 02-28-2022 End: 02-28-2022 Computerized corneal topography uni/bi Lilly Boyd OD Work Phone: Start: 09-01-2018 Standard chest X-ray jinny Her Work Phone: Start: 09-01-2018 Basic metabolic 1998 panel - Serum or Plasma Jacey Her Work Phone: Start: 09-01-2018 Influenza virus A AN D B antigen assay Jacey Her Work Phone: Start: 09-01-2018 Lactate [Moles/volum e] in Serum or Plasma Jacey Her Work Phone: Start: 09-01-2018 Streptococcus pyogen es Ag [Presence] in Throat Jacey Her Work Phone: Start: 09-01-2018 Urinalysis Deepak Her Work Phone: Extraction of wisdom tooth A my Michael Plan of Treatment Date Care Activity Detail Author Start: 03-24-2024 OCT OPTIC NERVE CIRR US OU (BOTH EYES) OCT OPTIC NERVE CIRRUS OU (BOTH EYES) OPHT Imaging Routine Glaucoma suspect of both eyes Expected: 03/24/2024 [facility] Work Phone: Comment on above: Expected: 03/24/2024 Start: 03-24-2024 VISUAL FIELD 24-2 OU (BOTH EYES) VISUAL FIELD 24-2 OU (BOTH EYES) OPHT Imaging Routine Glaucoma suspect of both eyes Expected: 03/24/2024 [facility] Work Phone: Comment on above: Expected: 03/24/2024 Start: 01-11-2022 Influenza vaccination INFLUENZA (#1) [facility] Start: 05-13-2021 DEPRESSION ASSESSMENT DEPRESSION ASS ESSMENT [facility] Start: 2018 PAP TESTING PAP TESTING [facility] Start: 2016 Urine microalbumin profile DTAP,TDAP,TD (1 - Tdap) [facility] Start: 10-29-2015 HEPATITIS C SCREENING HEPATITIS C SC GENOVEVA [facility] Start: 10-29-2015 HIV SCREENING HIV SCREENING [facility] Start: 10-29-2011 PEDS TO ADULT TRANSITION ANNUAL ASSESSMENT PEDS TO ADULT TRANSITION ANNUAL ASSESSMENT [facility] Start: 2009 PEDS TO ADULT TRANSITION INITIAL DISCUSSION PEDS TO ADULT TRANSITION INITIAL DISCUSSION [facility] Start: 2008 HPV VACCINE (1 - 2-d ose series) HPV VACCINE (1 - 2-dose series) [facility] Start: 04-29-1998 COVID-19 VACCINE (#1) COVID-19 VACCI NE (#1) [facility] Start: 1997 HEPATITIS B (1 of 3 - 3-dose series) HEPATITIS B (1 of 3 - 3-dose series) [facility] Complete blood count with white cell differential, automated CBC Auto Differential STAT 08/31/2018 11:41 PM EDT [facility] Complete blood count with white cell differential, manual CBC w/ Diff STAT 08/31/2018 11:41 PM EDT [facility] Hemoglobin A1c/Hemoglobin.total in Blood [facility] End: 09-01-2018 S. pyogenes Org specific cx Ql (Throat) Strep A Culture, Throat BILLY Once for 1 Occurrences starting 09/01/2018 until 09/01/2018, 1 completed [facility] Comment on above: Once for 1 Occurrenc es starting 09/01/2018 until 09/01/2018, 1 completed S. pyogenes Org specific cx Ql (Throat) Strep A Culture, Throat Routine 08/31/2018 11:41 PM EDT [facility] Serum progesterone measurement [facility] Thyroid stimulating hormone measurement [facility] US Pelvis transvaginal [facility] Payers Date Payer Category Payer Unknown [id number] 2024 Private Health Insurance [id number] 2024 Self-pay 2023 Unknown [id number] 2023 Unknown [id number] 2021 Unknown 2017 Unknown BERTA ORTIZ/PREF/HMO/PPO xxxxxxxxxxxx 2017-Present [id number] 2017 Unknown [id number] 1997 Unknown [id number] 1997 Unknown [id number] 1997 Unknown [id number] 1997 Unknown [id number] Unknown [id number] Unknown [id number] Unknown [id number] Unknown [id number] Social History Date Type Detail Facility Start: 08-31-2018 End: 11-18-2024 Tobacco smoking status NHIS Never smoker [facility] Start: 08-31-2018 History SDOH Alcohol Frequency 1 [facility] Start: 1995 Sex Assigned At Not on file [facility] Non-smoker Non-smoker [facility] Work Phone: Start: 02-28-2022 Tobacco use and exposure Smokeless tobacco non-user [facility] Start: 02-28-2022 End: 04-04-2022 Alcohol intake Ex-drinker (finding) [facility] Start: 02-18-2022 End: 04-04-2022 Exposure to SARS-CoV-2 (event) Not sure [facility] Start: 1995 Sex Assigned At Female [facility] Gender Identity Identifies as fe male gender (finding) [facility] Sexual Orientation Heterosexual (finding) [facility] Functional Status Date Assessment Result Facility NEGATED: Highlighted row Functional performance Functional status health issues are not documented Disease [facility] Internal [facility] Work Phone: Mental Status Date Assessment Result Facility NEGATED: Highlighted row Cognitive function [Interpretation] Cognitive status health issues are not documented Disease [facility] Work Phone: Clinical Notes 02-28-2022 to 11-20-2024 Note Date & Type Note Facility 11-20-2024 Radiology Diagnostic study note [facility] Imaging Services [address] [place], [place] [address] Transvaginal Non- MR#: [id number] Acct: [id number] Name: CASE,MARILYN PITT Rep #: [id number] : 1995 F 29 From: Estrellita Jameson MD PCP: Care Physician,No Primary Status: REG CLI Study:Transvaginal Non- Date of Exam: 11/20/24 Exam# [id number] Ordering Dr: Britney Garcia CNM PROCEDURE: TRANSVAGINAL NON- 11/20/2024 REASON FOR EXAM: IRREGULAR CYCLES TECHNIQUE: Grayscale and color Doppler transvaginal ultrasound COMPARISON: None. FINDINGS: Measurements: Uterus: 7.5 x 3.4 x 4.9 cm for volume of 65.5 mL Endometrial Thickness: 0.5 cm Right Ovary: 4.3 x 2.3 x 2.7 cm for volume of 14.0 mL Left Ovary: 3.0 x 1.8 x 1.9 cm for volume of 5.4 mL Uterus: Retroverted. Normal contour and myometrial echotexture. Nabothian cystsat the cervix. Endometrium: Normal echotexture. Right ovary: There are multiple small physiologic follicles, at least 10 on a single image. Left ovary: Normal size and echotexture. Cul-de-sac: No free intraperitoneal fluid identified. Color Doppler: Normal color flow doppler signal at both ovaries. US/Transvaginal Non- IMPRESSION: Polycystic morphology of the right ovary. Correlate for clinical evidence of PCOS. Reading Location: [id number] CC: BOLA Garcia; No Primary Care Physician ~ Imaging Specialist: Signed [facility] 11-18-2024 Evaluation note Diagnosis Onset Date Resolution Infertility counseling acute Ju 2024 6:21am Irregular menstrual cycle acute November 18, 2024 6 :21am [facility] Work Phone: [phone]) 946-723903-29-2024 NoteHNO ID: [id number] Author: LILLY BOYD II, OD Service: ? Author Type: MEDICAL LIBRARY ASSISTANT Type: Progress Notes Filed: 08/09/2023 16:10 Note Text: Assessment and Plan H52.13 Myopia, bilateral (primary encounter diagnosis) H52.223 Regular astigmatism of both eyes Comment: Patient had poor comfort with contacts. Prefers glasses. May consider refractive surgery in future. Small increase in glasses power. Update glasses. H40.003 Glaucoma suspect of both eyes Comment: Patient declines glaucoma testing as recommended. Understands possible permanent vision loss if glaucoma present and not treated. Will offer again at next annual visit. I have confirmed and edited as necessary the relevant HPI, ophthalmic history, ROS, and the neuro exam findings as obtained by others. I have seen and examined Marilyn Villaseñor. I have discussed the case and the management of this patient's care with the Resident/Fellow, if applicable. I also have reviewed and agree with the assessment and plan as stated above and agree with all of its relevant components.[facility]11-23-2022 History of Present illness Narrative* Lilly Boyd II, OD - 04/04/2022 5:20 PM EST Assessment and Plan H40.003 Glaucoma suspect of both eyes (primary encounter diagnosis) Comment: Glaucoma suspect both eyes due to optic nerve cupping, previously noted NFL anomalies and positive family history. Normal threshold Visual field today. Repeat testing in one year. No treatment indicated at this time. Discussed need for continued close observation to minimize chance of future vision loss. H52.13 Myopia, bilateral H52.223 Regular astigmatism of both eyes Comment: Ocular health maintained with contact lens use. Good fit. Reza stable. Ok to order YUPIQ Total 1 or Precision 1 material as desired. Recheck in one year. I have confirmed and edited as necessary the relevant ophthalmic history, ROS, and the neuro exam findings as obtained by others. I have seen and examined Marilyn Villaseñor. I have discussed the case and the management of this patient's care with the Resident/Fellow, if applicable. I also have reviewed and agree with the assessment and plan as stated above and agree withall of its relevant components. Lilly Boyd II, OD [facility] Instructions* Patient Instructions* Lilly Boyd II, OD - 02/28/2022 4:38 PM EDT Assessment and Plan H52.13 Myopia, bilateral (primary encounter diagnosis) H52.223 Regular astigmatism of both eyes Comment: Small increase in glasses power. Good contact lens candidate. Explained contact lens care,wear time, and handling along with need for good compliance with recommendations to minimize possibility of ocular damage and/or vision loss from use of contact lenses. Recheck trial fit in one week. H40.003 Glaucoma suspect of both eyes Comment: Glaucoma suspect both eyes due to optic nerve cupping, family history and noted NFL anomalies. Recommend threshold butt and Intraocular pressure recheck at contact lens check. No treatmentindicated at this time. Discussed need for continued close observation to minimize chance of futurevision loss. I have confirmed and edited as necessary the relevant ophthalmic history, ROS, and the neuro exam findings as obtained by others. I have seen and examined Marilyn Chen Case. I have discussed the case and the management of this patient's care with the Resident/Fellow, if applicable. I also have reviewed and agree with the assessment and plan as stated above and agree withall of its relevant components. Lilly Boyd II, OD [facility] History of Present illness Narrative* Lilly Boyd II, OD - 02/28/2022 4:35 PM EDT Assessment and Plan H52.13 Myopia, bilateral (primary encounter diagnosis) H52.223 Regular astigmatism of both eyes Comment: Small increase in glasses power. Good contact lens candidate. Explained contact lens care,wear time, and handling along with need for good compliance with recommendations to minimize possibility of ocular damage and/or vision loss from use of contact lenses. Recheck trial fit in one week. H40.003 Glaucoma suspect of both eyes Comment: Glaucoma suspect both eyes due to optic nerve cupping, family history and noted NFL anomalies. Recommend threshold butt and Intraocular pressure recheck at contact lens check. No treatmentindicated at this time. Discussed need for continued close observation to minimize chance of futurevision loss. I have confirmed and edited as necessary the relevant ophthalmic history, ROS, and the neuro exam findings as obtained by others. I have seen and examined Marilyn Chen Case. I have discussed the case and the management of this patient's care with the Resident/Fellow, if applicable. I also have reviewed and agree with the assessment and plan as stated above and agree withall of its relevant components. 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 No fever. No known COVID-19 exposure. Sinus pressure and pain with palpation of maxillary sinuses b/l. Tenderness rated 4/10. * Excedrin migraine offered moderate relief. * OTC cold and flu with minimal effect. * NS nasal spray in the morning. [facility] Work Phone: History of Present illness [id number] YOF presents via VV d/t hives after taking Amoxicillin. Denies respiratory concerns. Denies trouble swallowing. Reports itchy rash on b/l UE, torso, and neck.[facility] Work Phone: Reason for referral (narrative)No reason for referral information availableA[facility]on [facility] Work Phone: Discharge Instructions * Attachments The following attachments cannot be sent through Care Everywhere. * Viral Infections (Serbian) documented in this encounter Assessments Diagnosis Viral syndrome- Primary Unspecified viral infection, in conditions classified elsewhere and of unspecified site Advance Directives Patient has advance care planning documents on file. For more information, please contact: [address] [address] No Advanced Directives Records FoundNo Advanced Directives Records FoundNo Advanced Directives Records FoundNo Advanced Directives Records FoundNo Advanced Directives Records FoundNo Advanced Directives Records FoundNo Advanced Directives Records FoundNo Advanced Directives Records Found Summary Purpose Family History Grandmother Name Dates Details Family history of malignant neoplasm of female breast(V16.3, Z80.3) Status:Active aunt Name Dates Details Family history of malignant neoplasm of female breast(V16.3, Z80.3) Status:Active Grandparent Name Dates Details Family history of cardiac di sorder(V17.49, Z82.49) Status:Active Family history of myocardial infarction(V17.3, Z82.49) Status:Active aunt Name Dates Details Family history of hypertensi on(V17.49, Z82.49) Status:Active Mother Name Dates Details Family history of hyperchole sterolemia(V18.19, Z83.42) Status:Active Father Name Dates Details Family history of malignant neoplasm(V16.9, Z80.9) Status:Active Family history of cardiac di sorder(V17.49, Z82.49) Status:Active Family history of hypertensi on(V17.49, Z82.49) Status:Active Grandmother Name Dates Details Family history of malignant neoplasm of female breast(V16.3, Z80.3) Status:Active aunt Name Dates Details Family history of malignant neoplasm of female breast(V16.3, Z80.3) Status:Active Grandparent Name Dates Details Family history of cardiac di sorder(V17.49, Z82.49) Status:Active Family history of myocardial infarction(V17.3, Z82.49) Status:Active aunt Name Dates Details Family history of hypertensi on(V17.49, Z82.49) Status:Active Mother Name Dates Details Family history of hyperchole sterolemia(V18.19, Z83.42) Status:Active Father Name Dates Details Family history of malignant neoplasm(V16.9, Z80.9) Status:Active Family history of cardiac di sorder(V17.49, Z82.49) Status:Active Family history of hypertensi on(V17.49, Z82.49) Status:Active Unknown Family Member Name Dates Details Family history of malignant neoplasm: Father(V16.9, Z80.9) Status:Active Family history of cardiac di sorder: Father, Grandparent(V17.49, Z82.49) Status:Active Family history of hyperchole sterolemia: Mother(V18.19, Z83.42) Status:Active Family history of hypertensi on: Father, Aunt(V17.49, Z82.49) Status:Active Family history of myocardial infarction: Grandparent(V17.3, Z82.49) Status:Active Family history of malignant neoplasm of female breast: Maternal Grandmother, Maternal Aunt(V16.3, Z80.3) Status:Active Unknown Family Member Name Dates Details Family history of malignant neoplasm: Father(V16.9, Z80.9) Status:Active Family history of cardiac di sorder: Father, Grandparent(V17.49, Z82.49) Status:Active Family history of hyperchole sterolemia: Mother(V18.19, Z83.42) Status:Active Family history of hypertensi on: Father, Aunt(V17.49, Z82.49) Status:Active Family history of myocardial infarction: Grandparent(V17.3, Z82.49) Status:Active Family history of malignant neoplasm of female breast: Maternal Grandmother, Maternal Aunt(V16.3, Z80.3) Status:Active Relationship Condition Age at Onset Recorded Date/T nino sister History of splenectomy Unknown Chief Complaint C/O SINUS PRESSURE/CONGESTION, RUNNY NOSE, SORE THROAT SINCE LAST WENS. DID LOSE TASTE FOR 1 DAYPT STARTED ANTIBIOTIC A FEW DAYS AGO AND WOKE UP THIS MORNING WITH RASH ON ARMS AND LEGS VERY ITCHYNO DIFFICULTY SWALLOWING Medications Administered Section Active Administered Medications - up to 3 most recent administrations Medication Order MAR Action Action Date Dose Rate Site fluorescein-benoxinate 0.25-0.4 % 1 Drop (FLURESS) 1 Drop, BOTH EYES, DIRECTED, Starting on Sat04/04/22 at 1730, Until Sat04/05/22 at 0529, Administer for applanation tonometry. In the event of a Fluress shortage, administer [place]-Fluor 1 drop into both eyes as directed for applanation tonometry Given 04/04/2022 5:30 PM EST 1 Drop Chief Complaint and Reason for Visit Chief Complaint Admit Date Discuss infertility November 18, 2024 6:21a m Reason for Visit Admit Date Irregular menstrual cycle November 18, 2024 6:21am Chief Complaint Admit Date Discuss infertility November 18, 2024 6:21a m AUB November 20, 2024 5:46 pm Reason for Visit Admit Date Infertility counseling November 18, 2024 6: 21am Irregular menstrual cycle November 18, 2024 6:21am Additional Source Comments Reason for Visit (unrecogniz ed section and content) Reason Comments Fever Reason Comments Yearly Exam Contact lens evaluation Reason Comments Glaucoma Follow Up Pressure check Contact Lens Follow Up Contact lens [facility] Ginny Burdick RN - 09/01/2018 1:32 AM Jacey Palomino MD - 08/31/2018 11:07 PM Andrew Knott RN - 08/31/2018 10:54 PM Andrew Knott RN - 08/31/2018 10:21 PM EDT ED Notes (unrecognized secti on and content) Pt ambulates to restroom without difficult and steady gait. ED PROVIDER NOTE [facility] EMERGENCY DEPARTMENT NAME: Marilyn Brownlee AGE: 22 y.o. : 1995 VISIT DATE: 08/31/2018 CSN: [id number] PCP: Physician No Chief Complaint Patient presents with Fever Patient is a 22-year-old female who presents the emerge department with chief complaint of generalized body aches and fever. Patient states that for the last week she has been feeling not well has had a headache and pain in her back. The patient states she is also been coughing that is been nonproductive. The patient reports generalized body aches and states she is been unable to get comfortable even with taking Tylenol and ibuprofen.The patient states she has not seen her primary care physician. The patient reports she is also had sore throat with this as well.Patient reports that has not improved or worsened by anything Fever History reviewed. No pertinent past medical history. History reviewed. No pertinent surgical history. History reviewed. No pertinent family history. Social History Socioeconomic History Marital status: Single Spouse name: Not on file Number of children: Not on file Years of education: Not on file Highest education level: Not on file Social Needs Financial resource strain: Not on file Food insecurity - worry: Not on file Food insecurity - inability: Not on file Transportation needs - medical: Not on file Transportation needs - non-medical: Not on file Occupational History Not on file Tobacco Use Smoking status: Never Smoker Smokeless tobacco: Never Used Substance and Sexual Activity Alcohol use: Never Frequency: Never Drug use: Never Sexual activity: Not on file Other Topics Concern Not on file Social History Narrative Not on file No current outpatient medications on file prior to encounter. No Known Allergies Review of Systems Constitutional: Positive for fever. All other systems reviewed and are negative. Patient Vitals for the past 24 hrs: BP Temp Temp src Pulse Resp SpO2 Height Weight 09/01/18 0142 98.1 F (36.7 C) 08/31/18 2253 97 % 08/31/18 2252 5' 11 70.3 kg (155 lb) 08/31/18 2249 105/70 99.7 F (37.6 C) Oral 96 16 97 % Physical Exam General: Conversant and pleasant interactive and nontoxic. Head: Normocephalic/atraumatic Eyes: PERRLA, EOMI, no conjunctivitis Nares: Without d/c. Ears: No erythema or d/c noted. Oralpharnyx: P&MMM noted, Neck: Supple, no JVD or BRIM SETTER noted. Cardovascular: RRR without murmur, brisk capillary refill, no peripheral edema. Lungs: CTA B/L, non-labored Abd: Soft Non Tender, ND, no guarding, no rebound. : Defered Extremities: MAEE Neuro: AOx3, no obvious gross neuro deficit Psych: Normal Affect Derm: No rash noted. Laboratory & Radiographic Imaging (if done): Results for orders placed or performed during the hospital encounter of 08/31/18 Rapid Strep Screen Result Value Ref Range Strep A Ag Presumptive Negative for Group A Streptococcus Presumptive Negative for Group A Streptococcus Influenza A,B Rapid Molecular Result Value Ref Range Influenza A Not Detected Not Detected Influenza B Not Detected Not Detected Urinalysis Result Value Ref Range Color, Urine Yellow Colorless, Yellow Clarity, Urine Hazy (A) Clear Specific [place] 1.009 1.005 - 1.025 pH, Urine 8.0 (H) 5.0 - 7.0 Protein, Urine 30 (A) Negative mg/dL Glucose, Urine Negative Negative mg/dL Ketones, Urine Negative Negative mg/dL Bilirubin, Urine Negative Negative Urobilinogen, Urine <2.0 <2.0 mg/dL Blood, Urine Large (A) Negative Nitrite, Urine Negative Negative Leukocyte Esterase, Urine Small (A) Negative WBCs, Urine 5 0 - 5 /hpf RBCs, Urine 3 0 - 3 /hpf Bacteria, Urine Few (A) None Seen /hpf Squamous Epithelial 3 0 - 4 /hpf Chem 7 Result Value Ref Range Sodium 138 135 - 145 mmol/L Potassium 3.4 (L) 3.5 - 5.1 mmol/L Chloride 107 98 - 108 mmol/L Bicarbonate 26 21 - 32 mmol/L Creatinine 0.77 0.40 - 1.10 mg/dL Glucose 118 (H) 65 - 99 mg/dL BUN 5 (L) 8 - 25 mg/dL eGFR 112 >=60 mL/min/1.73 m2 BUN/Creatinine Ratio 6.5 (L) 10.0 - 20.0 Anion Gap 8 (L) 10 - 20 mmol/L Lactic Acid, Plasma Result Value Ref Range Lactic Acid 1.9 0.6 - 2.0 mmol/L CBC Auto Differential Result Value Ref Range WBC 4.54 4.50 - 11.00 K/mcL RBC 3.54 (L) 4.00 - 5.20 M/mcL Hemoglobin 10.3 (L) 12.0 - 16.0 g/dL Hematocrit 30.9 (L) 36.0 - 46.0 % MCV 87.3 80.0 - 100.0 fL MCH 29.1 26.0 - 34.0 pg MCHC 33.3 31.0 - 37.0 g/dL Platelets 103 (L) 150 - 400 K/mcL RDW - CV 12.6 11.6 - 14.8 % MPV 11.0 9.0 - 15.5 fL XR Chest AP/PA and LAT Preliminary Result No acute pulmonary abnormality. /[facility] Workstation ID: [id number] Procedures MDM Number of Diagnoses or Management Options Amount and/or Complexity of Data Reviewed Clinical lab tests: ordered and reviewed . . Clinical Impression: SNOMED CT(R) 1. Viral syndrome VIRAL DISEASE ED Disposition ED Disposition Condition Comment Discharge Stable Marilyn Brownlee discharged to home/self care in stable condition. Follow-up Information 1. [facility]. Why: Please follow-up with your primary care physician or [facility] as needed [address] [place] [id number] Contact information for after-discharge care Follow-up information has not been specified. Jacey Her MD 09/01/18199 Jacey Her MD 09/01/18199 PT STATES HAVING HEADACHE WITH NECK AND BACK PAIN SINCE SATURDAY. NOTED FLUSHED CHEEKS. WOKE THIS DAY WITH FEVER AND CHILLS WITH BODY ACHES. PAINFUL TO BREATH, CONGESTION AND RIGHT EAR PAIN. Pt having leg, neck and back ache. Congestion and shortness of breath. Also feeling nauseated. Started last Saturday and has gotten worse. documented in this encounter INFORMATION SOURCE (unrecogn ized section and content) DATE CREATED AUTHOR 09/03/2018 [facility] DATE CREATED AUTHOR AUTHOR'S ORGANIZ ATION 09/08/2018 [facility] DATE CREATED AUTHOR AUTHOR'S ORGANIZ ATION 12/12/2018 [facility] DATE CREATED AUTHOR AUTHOR'S ORGANIZ ATION 07/28/2021 [employer] DATE CREATED AUTHOR AUTHOR'S ORGANIZ ATION 08/10/2023 [facility] DATE CREATED AUTHOR AUTHOR'S ORGANIZ ATION 12/13/2023 [facility] DATE CREATED AUTHOR AUTHOR'S ORGANIZ ATION 12/16/2023 [facility] DATE CREATED AUTHOR AUTHOR'S ORGANIZ ATION 11/25/2024 [facility] Source Comments (unrecognize d section and content) In the event this informatio n is protected by the Federal Confidentiality of Alcohol and Drug Abuse Patient Records regulations: The Federal rules restrict any use of the information to criminally investigate or prosecute any alcohol or drug abuse patient.[facility] the event this information is protected by the Federal Confidentiality of Alcohol and Drug Abuse Patient Records regulations: The Federal rules restrict any use of the information to criminally investigate or prosecute any alcohol or drug abuse patient.[facility] Care Teams (unrecognized sec tion and content) Team Status: Active Member Role/Relationship Status Dates No Primary Care Physician Primary Care Provider Active Team Status: Inactive Member Role/Relationship Status Dates No Primary Care Physician Primary Care Provider Active Start: November 18, 2024 End: November 18, 2024 No Primary Care Physician Referring Provider Active Start: November 18, 2024 End: November 18, 2024 Britney Garcia CNM Attending Provider Active S tart: November 18, 2024 End: November 18, 2024 Team Status: Inactive Member Role/Relationship Status Dates No Primary Care Physician Primary Care Provider Active Start: November 20, 2024 End: November 20, 2024 Britney Garcia CNM Attending Provider Active S tart: November 20, 2024 End: November 20, 2024 Britney Garcia CNM Referring Provider Active S tart: November 20, 2024 End: November 20, 2024 Goals (unrecognized section and content) Goals may be documented in a n alternate sectionGoals may be documented in an alternate section FOR RECORDS PERTAINING TO PATIENTS WHO ARE OR HAVE BEEN ENROLLED IN A CHEMICAL DEPENDENCY/SUBSTANCEABUSE PROGRAM, SOME INFORMATION MAY BE OMITTED. This clinical summary was aggregated from multiple sources. Caution should be exercised in using it in the provision of clinical care. This summary normalizes information from multiple sources, and as a consequence, information in this document may materially change the coding, format and clinical context of patient data. In addition, data may be omitted in some cases. CLINICAL DECISIONS SHOULD BE BASED ON THE PRIMARY CLINICAL RECORDS. [facility]. provides no warranty or guarantee of the accuracy or completeness of information in this document.
[2024-11-29 07:07] LABS: PROGESTERONE 0.3 ng/mL (.)
== END | disposition home or self-care (01) ==
LOC: LAB 10:12
PROVIDERS: Referring Provider Advanced Practice Midwife; Visit Provider Advanced Practice Midwife
DX: Z13.1 Encounter for screening for diabetes mellitus (principal); N92.6 Irregular menstruation, unspecified; Z13.29 Encounter for screening for other suspected endocrine disorder
CPT/HCPCS: 36415; 83036; 84144; 84443

== ENCOUNTER → 2024-12-23 | Outpatient (CLI) | payer OTHER, SELFPAY ==
--- NOTE | 2024-12-23 11:47 | RAD_ITS ---
PROCEDURE: SALPINGOGRAM 12/23/2024 REASON FOR EXAM: INFERTILITY TECHNIQUE: SALPINGOGRAM. Hysterosalpingogram was performed by the moisture meter reader. Contrast was injected. Radiation report: Fluoroscopy 16 seconds. 2.9 mGy. COMPARISON: None FINDINGS: The uterus is unremarkable. Both fallopian tubes are patent with the spill of contrast. RAD/Salpingogram IMPRESSION: Normal hysterosalpingogram. Reading Location: [facility]
--- NOTE | 2024-12-23 12:28 | PCM.OP.PRO2 ---
Multi Select Codes Urinary/Genital Urinary/Genital CPT Codes: 76811 HSG/SIS Non-invasive Procedural Procedure Information Date of Procedure: 12/23/24 Pre-Procedure Diagnosis: infertility Post-Procedure Diagnosis: infertility Procedure Performed:: hysterosalpingogram reel cart operator: No Description of procedure: Findings: Bilateral tubal patency and normal uterine cavity Operative details: Patient was taken to the x-ray room and was placed on the x-ray table and was in the dorsal lithotomy position. Speculum was placed in the vagina and the cervix prepped with Betadine and the HSG catheter was easily introduced into the uterus and speculum removed. Radiopaque dye was injected into the uterus via the HSG catheter the model technician took multiple images and views and confirmed bilateral tubal patency seen. No gross uterine filling defects or abnormalities were seen. All instruments removed from the vagina and the uterus without complication. Patient tolerated the procedure well. Procedure findings: normal uterus and tubes (patent) Complications Complications: No
== END | disposition home or self-care (01) ==
PROVIDERS: Referring Provider Advanced Practice Midwife; Visit Provider Advanced Practice Midwife
DX: N97.0 Female infertility associated with anovulation (principal)
CPT/HCPCS: 58340; 74740; Q9967

== ENCOUNTER → 2025-04-12 | Outpatient (CLI) | payer OTHER, SELFPAY | END | disposition home or self-care (01) | PROVIDERS: Visit Provider Advanced Practice Midwife | DX: Z31.69 Encounter for other general counseling and advice on procreation (principal) | CPT/HCPCS: 36415 ==